=== PATIENT | female | born 1960 | race Caucasian/White ===

== ENCOUNTER → 2018-01-10 | Outpatient (CLI) | payer BC ==
[~2018-01-10] MED LIST: CALCIUM 600MG+D1 TAB PO; CELEXA40 MG PO; DIABETA 5MG5 MG/TAB PO; GLUCOPHAGE500 MG/TAB PO; JANUVIA25 MG PO; LOFIBRA160 MG PO; MEVACOR 20M20 MG/TAB PO; MULTIPLE VITAMI1 CAP PO; OMEGA 31000 MG PO; PRINIVIL20 MG PO; VITAMINC1000TA PO
== END ==
LOC: MC.RAD 07:45
DX: Z12.31 Encounter for screening mammogram for malignant neoplasm of breast (principal)

== ENCOUNTER 2018-08-23 12:23 | Inpatient (IN) | payer BC ==
[~2018-08-23] VITALS: Ht 167.6 cm; Wt 106.3 kg
[2018-11-26] VITALS (11 sets, daily range): BP systolic 93–122; BP diastolic 45–93; PULSE 72–87; TEMP 97–98.7
[2018-11-26] MEDS ORDERED: NATURE'S BLE1000 MCG (04:30)
[2018-11-26] MEDS ORDERED: BASAGLAR K100 UNIT/1 SQ (04:30)
[2018-11-26] MEDS ORDERED: LOPID 600M600 MG/TAB PO (04:31)
[2018-11-26] MEDS ORDERED: MAGNESIUM ELEME30 MG PO (04:32)
[2018-11-26] MEDS ORDERED: JANUMET 1000 MG1 TA1 PO (04:32)
[2018-11-26] MEDS ORDERED: MOBIC15 MG PO (04:33)
[2018-11-26] MEDS ORDERED: MASON NATURAL2000 IU PO (04:35)
[2018-11-26] MEDS ORDERED: NOVOLOG FLEX100 U/ML SQ (05:57)
--- NOTE | 2018-11-26 12:28 | NUR ---
PT TO ROOM 329 BY BED WITH REPORT FROM MODESTO TORRES PACU @[id number]. VSS, PT IS A/OX3 LUNGS CLEAR INCISION COVERED WITH BULKY DRESSINGS, SCDS AND TEDS BILATERALLY.
--- NOTE | 2018-11-26 14:21 | NUR ---
LORAINE met with the patient and patient's sister, Guadalupe Mcdaniel, to discuss discharge plan. The patient lives alone in [place]. She states she has a cousin, Isabel, that lives in town and has good friend support. She reports independence with ADLs and has a cane, walker, and shower chair. The patient's PCP is Dr. Moody Munoz and she receives her medications from [facility] or through a mail order. She reports no difficulties obtaining her meds. The patient does not have advanced directives, but she was interested in obtaining a form for DPOA-HC so she could appoint her sister, Guadalupe Mcdaniel. LORAINE provided the form. The patient plans to return home and receive outpatient therapy at [facility] upon discharge. She states she has about five different people to help give her rides to appointments. No additional needs at this time.
--- NOTE | 2018-11-26 15:41 | NUR ---
Dr. Almaguer in to see patient this afternoon.
--- NOTE | 2018-11-26 18:57 | NUR ---
REPORT TO MALIK TORRES
--- NOTE | 2018-11-26 20:00 | NUR ---
Report received. Assumed care for overnight cashier. Assessment complete. VS stable. Dressing to right hip-gauze/foam tape C/D/I. Fresh ice pack applied. Educated on positioning of lower extremities to keep alignment. Verbalizes understanding. Plan of care discussed for up with assist this shift. Verbalizes understanding. Call light within reach. Bed in low position. Wheels locked. Encouraged to call for questions or concerns. Verbalizes understanding. WIll monitor.
--- NOTE | 2018-11-26 21:00 | NUR ---
Bedside glucose 239. Discussed home medications and verified in Med rec. Consult placed to pharmacy via med rec to find substitution for normal home insulin. WIll monitor.
[2018-11-27] VITALS (7 sets, daily range): BP systolic 104–135; BP diastolic 54–88; PULSE 78–102; TEMP 97.8–99.4
--- NOTE | 2018-11-27 01:00 | NUR ---
Up to side of bed at this time with two assist. Tolerate well. Stood at bedside for approx 2 minutes-ambulated to room door and back with walker/gait belt. Tolerated well-did cry out in pain several times requesting to go back to bed before walk finished. Sat on side of bed after ambulating due to feeling "dizzy/lightheaded/clammy." Assisted back to bed. Fresh ice pack applied. Denies any needs. Educated on proper alignment with pillow support. Call light within reach. Bed in low position. WIll continue to monitor.
[2018-11-27 06:39] LABS: HEMOGLOBIN 10.4 g/dl (12.5-16.0)
[2018-11-27 07:05] LABS: HEMATOCRIT 30.1 % (37.0-47.0)
--- NOTE | 2018-11-27 09:07 | NUR ---
First visit from the supervisor carbon paper coating. No needs right now.
--- NOTE | 2018-11-27 09:29 | NUR ---
PT VERY ANXIOUS AND TIME ORIENTED. PAIN CONTROLLED WITH PO PAIN MEDS. EATING AND DRINKING WITH NO N/V. DRESSING TO RIGHT HIP CDI. FACUNDO PEÑA IN TO SEE PATIENT. CONSULT CALLED TO HOSPITALIST FOR DIABETIC MANAGEMENT.
--- NOTE | 2018-11-27 15:46 | NUR ---
discontinued hernández catheter per orders. pt tolerated well. 2000 mls urine removed prior to discontinuing.
--- NOTE | 2018-11-27 18:57 | NUR ---
dressing change complete, incision cdi. pt voiding after hernández removal. Report to Odalis TORRES.
[2018-11-28 04:00] VITALS: BP 114/67; PULSE 95; TEMP 99.7
--- NOTE | 2018-11-28 06:00 | NUR ---
Patient slept most the night. Pain has been well controlled with norco. Patient walked before bed. Denies nausea. She is hoping to go home today. Dressing remains clean, dry and intact. No other changes at this time. Call light within reach.
--- NOTE | 2018-11-28 06:35 | NUR ---
bedside shift report received from MELISSA Castorena
--- NOTE | 2018-11-28 07:40 | NUR ---
resting in bed, has ordered breakfast, full assessment completed, see interventions for further info, denies needs
[2018-11-28 07:47] VITALS: BP 104/60; PULSE 83; TEMP 98.3
[2018-11-28 07:58] LABS: HEMOGLOBIN 10.5 g/dl (12.5-16.0)
[2018-11-28 08:04] LABS: HEMATOCRIT 29.6 % (37.0-47.0)
--- NOTE | 2018-11-28 08:55 | NUR ---
ambulated out to multani with physical therapy for group exercises
--- NOTE | 2018-11-28 09:20 | NUR ---
back to room after therapy and c/o pain 01/11, medicated with hydrocodone 7.5mg 2 tabs, will try and rest
--- NOTE | 2018-11-28 10:15 | NUR ---
occupational therapy in and working with patient on taking a shower
--- NOTE | 2018-11-28 10:31 | NUR ---
Initial visit; Patient thanked Bending Shed Worker for looking in on her and offering Spiritual Care.
--- NOTE | 2018-11-28 11:50 | NUR ---
remains sitting up in the chair, denies needs
[2018-11-28 12:02] VITALS: BP 119/64; PULSE 82; TEMP 97.2
--- NOTE | 2018-11-28 12:15 | NUR ---
medicated with roxicodone 10mg per patient's request in anticipation of therapy
--- NOTE | 2018-11-28 13:11 | NUR ---
ambulating out to multani with physical therapy for group exercises
--- NOTE | 2018-11-28 13:50 | NUR ---
back to room after therapy and into bed to rest
--- NOTE | 2018-11-28 15:21 | NUR ---
resting in bed and is ready to try and nap
[2018-11-28 16:02] VITALS: BP 109/59; PULSE 79; TEMP 98.5
[2018-11-28 16:09] VITALS: BP 109/59; PULSE 79; TEMP 98.5
--- NOTE | 2018-11-28 16:40 | NUR ---
up to bathroom, friend in to visit
--- NOTE | 2018-11-28 17:25 | NUR ---
ambulating in multani independently with family at side
--- NOTE | 2018-11-28 18:44 | NUR ---
bedside shift report given to MELISSA Jacobo
[2018-11-28 20:48] VITALS: BP 130/61; PULSE 96; TEMP 98.9
[2018-11-29 01:20] VITALS: BP 106/56; PULSE 92; TEMP 98.9
[2018-11-29 05:59] VITALS: BP 108/58; PULSE 83; TEMP 98.9
--- NOTE | 2018-11-29 06:30 | NUR ---
Patient slept well most the night. She walked with her sister once before bed. No complaints of nausea. She had norco before bed. She changed her mind about taking the norco this am. She wants to wait until an hour before PT. No other changes at this time. Call light within reach.
[2018-11-29] MEDS ORDERED: XARELTO10 MG PO (06:41)
[2018-11-29] MEDS ORDERED: NORCO 325 MG-7.1 TAB PO (06:42)
[2018-11-29] MEDS ORDERED: CELEBREX 200MG200 MG PO (06:42)
[2018-11-29] MEDS ORDERED: SENOKOT S 50 MG1 TAB PO (06:43)
[2018-11-29 07:32] VITALS: BP 127/66; PULSE 90; TEMP 98.4
--- NOTE | 2018-11-29 07:50 | NUR ---
sitting up in chair ready for breakfast, c/o some pain to right hip and medicated with hydrocodone 7.5mg 2 tabs,
--- NOTE | 2018-11-29 09:14 | NUR ---
ambulating in multani with physical therapy, steady gait and denies needs
--- NOTE | 2018-11-29 10:59 | NUR ---
resting in bed, social services manager in to visit with patient
--- NOTE | 2018-11-29 11:37 | NUR ---
has had shower and tolerated well, is making arrangements for all her home care needs
[2018-11-29 11:48] VITALS: BP 127/61; PULSE 83; TEMP 98
--- NOTE | 2018-11-29 13:00 | NUR ---
up and about in room independently and providing self care, sister at bedside
--- NOTE | 2018-11-29 14:07 | NUR ---
LORAINE met with the patient and her sister to review discharge plan. The patient reports that she is interested in a hospital bed and toliet riser. LORAINE discussed how a toliet riser is not covered by insurance, but where she could obtain one. LORAINE then discussed DME companies for the hospital bed. The patient chose [facility]. LORAINE then contacted and faxed a referral to [facility]. Chucho, from [facility], reports that they do not have a tech until Sunday that could deliver and assemble the bed. Chucho referred LORAINE to [facility]. LORAIEN then met with the patient to inform. The patient reports that she would be agreeable to [facility]. LORAINE contacted and faxed the order to Piper at [facility]. Piper reports that the patient had already contacted her insurance and the insurance company contacted [facility] and submitted a claim. Piper reports that they can deliver the hospital bed to the patient's home today. Piper had updated the patient. LORAINE then met with the patient and confirmed plan. The patient is to discharge back home with family support from her sister and daughter today, 11/29, and will receive outpatient therapy at [facility]. No additional needs at this time.
--- NOTE | 2018-11-29 14:25 | NUR ---
discharge instructions given to patient and her sister, verbalizes understanding
--- NOTE | 2018-11-29 14:35 | NUR ---
discharged per WC
== END 2018-11-29 14:35 | disposition home or self-care (01) | DRG 470 ==
LOC: JCC 11-26 05:19
PROVIDERS: ADMIT Orthopaedic Surgery
PROC: 0SR90JA Replacement of Right Hip Joint with Synthetic Substitute, Uncemented, Open Approach (ICD-10-PCS; principal; 2018-11-26 07:30)
DX: M16.11 Unilateral primary osteoarthritis, right hip (principal); M51.36 Other intervertebral disc degeneration, lumbar region; F32.9 Major depressive disorder, single episode, unspecified; E11.9 Type 2 diabetes mellitus without complications; G47.33 Obstructive sleep apnea (adult) (pediatric); E11.65 Type 2 diabetes mellitus with hyperglycemia; K21.9 Gastro-esophageal reflux disease without esophagitis; E78.5 Hyperlipidemia, unspecified; F41.9 Anxiety disorder, unspecified; Z96.659 Presence of unspecified artificial knee joint; Z86.718 Personal history of other venous thrombosis and embolism; Z79.84 Long term (current) use of oral hypoglycemic drugs
CPT/HCPCS: 99223; 99231-AI; A4314; A9284; C1713; C1776; J0690; J1170; J1815; J2250; J2270; J2704; J3010; J7030

== ENCOUNTER → 2018-08-27 | Outpatient (CLI) | payer BC | LOC: COL.VAS 10:27 | DX: Z01.818 Encounter for other preprocedural examination (principal); Z86.718 Personal history of other venous thrombosis and embolism ==

== ENCOUNTER → 2018-11-11 | Outpatient (CLI) | payer BC | LOC: COL.VAS 11-06 15:00 | DX: Z01.810 Encounter for preprocedural cardiovascular examination (principal); M79.89 Other specified soft tissue disorders; Z86.718 Personal history of other venous thrombosis and embolism ==

== ENCOUNTER → 2018-11-18 | Outpatient (CLI) | payer BC | LOC: COL.RAD 11-14 09:45 → COL.LAB 08:52 → COL.RAD 08:52 | DX: N13.30 Unspecified hydronephrosis (principal); N39.43 Post-void dribbling; N18.1 Chronic kidney disease, stage 1 ==

== ENCOUNTER → 2018-11-20 | Outpatient (CLI) | payer BC | LOC: SUN.DIA 14:47 | DX: E11.9 Type 2 diabetes mellitus without complications (principal); E66.9 Obesity, unspecified; Z79.4 Long term (current) use of insulin | CPT/HCPCS: G0108 ==

== ENCOUNTER → 2018-12-10 | Outpatient (CLI) | payer BC ==
[~2018-12-10] MED LIST changes: +BASAGLAR K100 UNIT/1 SQ; +CELEBREX 200MG200 MG PO; +JANUMET 1000 MG1 TA1 PO; +LOPID 600M600 MG/TAB PO; +MAGNESIUM ELEME30 MG PO; +MASON NATURAL2000 IU PO; +MOBIC15 MG PO; +NATURE'S BLE1000 MCG; +NORCO 325 MG-7.1 TAB PO; +NOVOLOG FLEX100 U/ML SQ; +SENOKOT S 50 MG1 TAB PO; +XARELTO10 MG PO
== END ==
LOC: DIA.ED 10:09 → SUN.DIA 15:18
DX: E11.9 Type 2 diabetes mellitus without complications (principal); E66.9 Obesity, unspecified; Z79.4 Long term (current) use of insulin
CPT/HCPCS: G0108

== ENCOUNTER → 2019-01-29 | Outpatient (CLI) | payer BC | LOC: DIA.ED 01-21 15:22 | DX: E11.9 Type 2 diabetes mellitus without complications (principal); E66.9 Obesity, unspecified; Z79.4 Long term (current) use of insulin | CPT/HCPCS: G0108 ==

== ENCOUNTER → 2019-03-11 | Outpatient (CLI) | payer BC | LOC: BHSO 12:47 | DX: F33.0 Major depressive disorder, recurrent, mild (principal) ==

== ENCOUNTER → 2019-03-20 | Outpatient (CLI) | payer BC | LOC: BHSO 08:47 | DX: F41.1 Generalized anxiety disorder (principal) ==

== ENCOUNTER → 2019-04-01 | Outpatient (CLI) | payer BC | LOC: BHSO 12:57 | DX: F33.1 Major depressive disorder, recurrent, moderate (principal) ==

== ENCOUNTER → 2019-04-02 | Outpatient (CLI) | payer BC | LOC: DIA.ED | DX: E11.9 Type 2 diabetes mellitus without complications (principal); E66.9 Obesity, unspecified; Z79.4 Long term (current) use of insulin | CPT/HCPCS: G0108 ==

== ENCOUNTER → 2019-04-10 | Outpatient (CLI) | payer BC | LOC: BHSO 15:52 | DX: F33.0 Major depressive disorder, recurrent, mild (principal) ==

== ENCOUNTER → 2019-05-13 | Outpatient (CLI) | payer BC | LOC: MC.RAD 17:00 | DX: Z12.31 Encounter for screening mammogram for malignant neoplasm of breast (principal) ==

== ENCOUNTER → 2019-05-15 | Outpatient (CLI) | payer BC | LOC: BHSO 15:54 | DX: F33.0 Major depressive disorder, recurrent, mild (principal) ==

== ENCOUNTER → 2020-03-09 | Outpatient (CLI) | payer BC | LOC: MC.RAD 03-04 16:15 | DX: Z12.31 Encounter for screening mammogram for malignant neoplasm of breast (principal) ==

== ENCOUNTER 2020-07-06 08:39 | Emergency (ER) | payer BC ==
[~2020-07-06] VITALS: Ht 165.1 cm; Wt 113.6 kg
[2020-07-06 08:51] VITALS: TEMP 98
[2020-07-06 11:01] VITALS: BP 135/75; PULSE 80
== END 2020-07-06 11:00 | disposition home or self-care (01) ==
LOC: COL.ER 08:39
DX: S01.01XA Laceration without foreign body of scalp, initial encounter (principal); Z79.01 Long term (current) use of anticoagulants; Z79.4 Long term (current) use of insulin; W01.10XA Fall on same level from slipping, tripping and stumbling with subsequent striking against unspecified object, initial encounter

== ENCOUNTER → 2021-04-19 | Outpatient (CLI) | payer BC | LOC: MC.RAD 16:20 | DX: Z12.31 Encounter for screening mammogram for malignant neoplasm of breast (principal); N63.20 Unspecified lump in the left breast, unspecified quadrant ==

== ENCOUNTER → 2021-05-06 | Outpatient (CLI) | payer BC | LOC: MC.RAD 07:52 | DX: N63.20 Unspecified lump in the left breast, unspecified quadrant (principal) ==

== ENCOUNTER → 2021-11-28 | Outpatient (CLI) | payer BC | LOC: MC.RAD 07:57 | DX: N63.24 Unspecified lump in the left breast, lower inner quadrant (principal); N63.22 Unspecified lump in the left breast, upper inner quadrant ==

== ENCOUNTER → 2022-07-04 | Outpatient (CLI) | payer BC | LOC: MC.RAD 15:15 | DX: Z12.31 Encounter for screening mammogram for malignant neoplasm of breast (principal) ==

== ENCOUNTER → 2023-10-11 | Outpatient (CLI) | payer BC | LOC: MC.RAD 15:00 | DX: Z12.31 Encounter for screening mammogram for malignant neoplasm of breast (principal) ==